=== PATIENT | male | born 1975 | race Caucasian/White ===

== ENCOUNTER 2021-06-07 12:33 | Emergency (ER) | payer OTHER, SELFPAY ==
[2021-06-07 12:37] VITALS: BP 107/76; PULSE 87; RESP 17; TEMP 36.5; O2SAT 96; BMI 32.1
--- NOTE | 2021-06-07 12:54 | ECG_ITS ---
Test Reason : ALLERGIC REACTION Blood Pressure : / mmHG Vent. Rate : 084 BPM Atrial Rate : 084 BPM P-R Int : 134 ms QRS Dur : 084 ms QT Int : 374 ms P-R-T Axes : 058 011 043 degrees QTc Int : 441 ms Normal sinus rhythm Normal ECG No previous ECGs available Referred By: Gin Betancourt Electronically Signed By:Mick Colvin
[2021-06-07] MEDS: Famotidine/PF 20 MG/2 ML VIAL IVPUSH (13:00)
[2021-06-07] MEDS: 0.9 % Sodium Chloride 1,000 ML 999 ML IV (13:00)
[2021-06-07] MEDS: diphenhydrAMINE HCL 50 MG/ML VIAL IVPUSH (13:00)
--- NOTE | 2021-06-07 13:09 | ED_ITS ---
HPI - Allergic Reaction General Chief complaint: Allergic Reaction Stated complaint: * Time Seen by Provider: 06/07/21 12:52 Source: EMS Mode of arrival: EMS Limitations: no limitations History of Present Illness HPI narrative: 46-year-old male previously healthy here with complaints of allergic reaction. Patient tells me approximately 1 hours prior to arrival he took a friend's dose of amoxicillin for a toothache. Shortly after he developed facial swelling, itching, vomiting, diarrhea, rash. He called EMS. He received 0.3 mg of epinephrine, 125 mg of Solu-Medrol, Benadryl 50 mg and 1 L of normal saline prior to arrival. He has no history of allergic reactions to penicillin before. On arrival he is feeling improved but is still complaining of some mild lower lip swelling and tongue swelling. Related Data Previous Rx's Medication Instructions Recorded clindamycin HCl 150 mg capsule 150 mg PO TID #21 cap 06/07/21 diphenhydramine HCl 25 mg capsule 25 mg PO Q6H PRN #20 cap 06/07/21 (Benadryl) epinephrine 0.3 mg/0.3 mL 0.3 mg IM Q10M PRN #2 ea 06/07/21 injection, auto-injector (EpiPen) famotidine 40 mg tablet 40 mg PO DAILY #5 tab 06/07/21 prednisone 20 mg tablet 40 mg PO DAILY #10 tab 06/07/21 Allergies Allergy/AdvReac Type Severity Reaction Status Date / Time No Known Allergies Allergy Unverified 07/18/20 16:51 Review of Systems Review of Systems: Yes all other systems are reviewed and are negative Constitutional: Constitutional: Reports no additional constitutional complaints, Denies body ache(s), Denies chills, Denies fever(s), Denies heada josefina(s) and Denies weakness Eyes: Eyes: Reports no additional eye complaints and Denies change in vision ENT: Reports system reviewed and no additional complaints, except as documented, Denies dizziness, Denies headache(s), Denies nasal congestion, Denies nasal discharge, Denies neck pain, Reports throat swelling and Reports tongue swelling Cardiovascular: Cardiovascular: Reports no additional cardiovascular complaints, Denies chest pain, Denies leg edema and Denies dyspnea Respiratory: Respiratory: Reports no additional respiratory complaints, Denies cough and Denies dyspnea Gastrointestinal: Gastrointestinal: Reports no additional gastrointestinal complaints, Denies abdominal pain, Reports diarrhea, Reports nausea and Reports vomiting Genitourinary: Genitourinary: Denies urinary incontinence Musculoskeletal: Musculoskeletal: Reports no additional musculoskeletal complaints, Denies back pain, Denies arthralgias, Denies joint swelling, Denies neck pain, Denies numbness and Denies tingling Integumentary/Breasts: Skin/Breast: Reports system reviewed and no additional complaints, except as docu, Reports pruritus and Reports rash Neurologic: Reports system reviewed and no additional complaints, except as documented, Denies Abnormal speech present, Denies dizziness, Denies headache(s), Denies numbness, Denies tingling and Denies weakness Allergic/Immunologic: Allergic/Immunologic: Reports throat swelling and Reports tongue swelling PMFSH Past Medical History Attestation statement: The following information was validated with the patient. Source: old records reviewed and nursing notes reviewed Social History Social History Alcohol intake: never Smoked in Last 30 Days: No Use of substances other than those prescribed or required for medical reasons: No Advance Directives: No Advance Directives Information Provided: Yes Physical Exam Vital Signs: Vital Signs: Last Vital Signs Temp 97.7 F 06/07/21 12:37 Pulse 70 06/07/21 16:32 Resp 16 06/07/21 16:32 BP 120/77 06/07/21 16:32 Pulse Ox 97 06/07/21 16:32 Body Mass Index 32.1 Const: General: cooperative, healthy appearing, comfortable and no acute distress Orientation/consciousness: patient oriented x3 Limitations: no limitations HENMT: Other: Mild to moderate swelling to the tongue. Uvula normal. Tolerating secretion. No upper airway stridor noted Head: Yes normal to inspection Ears: hearing grossly normal bilaterally General nose exam: Normal external nose present Face and sinus: Yes normal facial exam Mouth: Normal oral and palatal mucosa present and other (Mild swelling to lower lip. Upper lip normal) Throat: Yes posterior oropharynx normal Eyes: General: appearance normal, both eyes and all related structures Pupils: Equal, round and reactive pupils present Neck: Neck: Yes normal visual inspection Chest: Chest palpation & inspection: normal inspection of the chest Resp: Effort & Inspection: normal respiratory effort Auscultation: clear to auscultation bilaterally Cardio: Rate: regular rate Rhythm: regular rhythm Peripheral pulses: Peripheral pulses 2+ throughout GI: Inspection: Yes normal to inspection Palpation (GI): Soft to palpation and nontender Auscultation: normal bowel sounds Back/Spine/Pelvis: Thoracic/Lumbar Spine: thoracic and lumbar spine normal to inspection Skin: Other: Faint urticaria rash noted over the face and chest General skin exam: no rashes or lesions noted Neuro: General: patient oriented x3, no focal motor deficits and normal sensation to monofilament Cranial nerves: Yes Equal, round and reactive pupils present Cognition (Neuro): normal cognition Speech: No Abnormal speech present Gait exam (Neuro): Normal gait present Motor exam (neuro): 5/5 motor strength present throughout Extrem: General: Yes normal to inspection Course Course Course Narrative: 46-year-old male here after allergic reaction to taking a dose of amoxicillin from a friend for toothache. Had symptoms of facial swelling, itching, vomiting, diarrhea and rash. Received epinephrine, Solu-Medrol, Benadryl and fluids prior to arrival. On arrival he is feeling improved. He does report some mild lower lip swelling and tongue swelling. He is managing his airway. He is tolerating secretions. Uvula is midline with no swelling. No upper airway stridor. Stable vital signs. Dr. Caputo brought direct to bedside to eval patient. Plan for additional Benadryl, famotidine, normal saline. Will check EKG. Reassess and 15-20 minutes for need for repeat epinephrine. Monitor in ED for 4 hours [id number] no changes [id number] no changes [id number] no changes 1700-patient was re-evaluated. He feels like his tongue and face are less swollen itchy. He denies any difficulty breathing, vomiting or diarrhea. His rash is improved. He does have some mild swelling to the lower lip and tongue but is tolerating p.o. with no difficulty. No stridor. Stable vital signs. Discussed patient with Dr. Caputo. Plan for discharge home with EpiPen as needed. Will also discharge home with course of prednisone, Pepcid with Benadryl p.r.n. Of note, the patient is requesting antibiotics for dental pain. He plans to follow-up with his dentist this week. Will send him home with a course of clindamycin. On exam extensive dental caries MDM - Allergic Reaction Medical Records Attestation: I reviewed the patient's medical records. Lab Data Attestation: I reviewed the patient's lab results. ECG Data Attestation: I personally reviewed and interpreted this ECG as follows: ECG interpretation date: 06/07/21 ECG interpretation time: 12:43 Interpretation: Normal sinus rhythm with a rate 84, normal VA, normal QRS, normal QT Discharge Plan Discharge Clinical Impression: Allergic reaction, Pain, dental Patient Disposition: Home, Self-Care Instructions: Toothache (ED), General Allergic Reaction (ED) Additional Instructions: Return for difficulty breathing, increasing swelling over the face or mouth Start your prednisone and Pepcid tomorrow Use Benadryl as needed. Follow-up with dental clinic Prescriptions: New epinephrine [EpiPen] 0.3 mg/0.3 mL auto-injector 0.3 mg IM Q10M PRN (Reason: anaphylaxis) Qty: 2 RF: 0 prednisone 20 mg tablet 40 mg PO DAILY Qty: 10 RF: 0 diphenhydramine HCl [Benadryl] 25 mg capsule 25 mg PO Q6H PRN (Reason: allergic reaction) Qty: 20 RF: 0 famotidine 40 mg tablet 40 mg PO DAILY Qty: 5 RF: 0 clindamycin HCl 150 mg capsule 150 mg PO TID Qty: 21 RF: 0 Referrals: Physician,None [Primary Care Provider] - 2 days Interventions: ED Discharge Assessment Last Done: 06/07/21 17:15 Discharge Date/Time: 06/07/21 17:20
[2021-06-07 16:32] VITALS: BP 120/77; PULSE 70; RESP 16; O2SAT 97
== END 2021-06-07 17:20 | disposition home or self-care (01) ==
PROVIDERS: Emergency Provider Emergency Medicine Emergency Medical Services
DX: L50.9 Urticaria, unspecified (principal); T36.0X5A Adverse effect of penicillins, initial encounter; Y92.9 Unspecified place or not applicable
CPT/HCPCS: 93005; 96361; 96374; 96375; 99284; J1200

== ENCOUNTER 2021-08-09 11:21 | Emergency (ER) | payer OTHER, SELFPAY ==
[2021-08-09 12:17] VITALS: BP 139/83; PULSE 74; RESP 16; TEMP 36.6; O2SAT 98; BMI 31.5
--- NOTE | 2021-08-09 12:44 | ED.DENTAL ---
HPI - Dental/Oral General Chief complaint: Dental/Oral Stated complaint: dental pain Time Seen by Provider: 08/09/21 12:25 Source: patient Mode of arrival: ambulatory Limitations: no limitations History of Present Illness HPI Narrative: 46-year-old male here with complaints of right lower dental pain for several weeks worsening over the last few days. Patient tells me he is working on establishing a dentist. He does have health insurance. He denies any fevers, chills, difficulty swallowing or breathing. Related Data Previous Rx's Medication Instructions Recorded clindamycin HCl 150 mg capsule 150 mg PO TID #21 cap 06/07/21 diphenhydramine HCl 25 mg capsule 25 mg PO Q6H PRN #20 cap 06/07/21 (Benadryl) epinephrine 0.3 mg/0.3 mL 0.3 mg IM Q10M PRN #2 ea 06/07/21 injection, auto-injector (EpiPen) famotidine 40 mg tablet 40 mg PO DAILY #5 tab 06/07/21 prednisone 20 mg tablet 40 mg PO DAILY #10 tab 06/07/21 clindamycin HCl 150 mg capsule 150 mg PO TID 10 Days #30 cap 08/09/21 ibuprofen 800 mg tablet 800 mg PO Q8H PRN #30 tab 08/09/21 oxycodone 5 mg tablet 5 mg PO Q8H PRN #5 tab 08/09/21 Allergies Allergy/AdvReac Type Severity Reaction Status Date / Time No Known Allergies Allergy Unverified 07/18/20 16:51 Review of Systems Review of Systems: Yes all other systems are reviewed and are negative Constitutional: Constitutional: Reports no additional constitutional complaints, Denies body ache(s), Denies chills, Denies fever(s), Denies headache(s) and Denies weakness Eyes: Eyes: Reports no additional eye complaints and Denies change in vision ENT: Reports system reviewed and no additional complaints, except as documented, Reports dental pain, Denies dizziness, Denies headache(s), Denies nasal congestion, Denies nasal discharge and Denies neck pain Cardiovascular: Cardiovascular: Reports no additional cardiovascular complaints, Denies chest pain, Denies leg edema and Denies dyspnea Respiratory: Respiratory: Reports no additional respiratory complaints, Denies cough and Denies dyspnea Gastrointestinal: Gastrointestinal: Reports no additional gastrointestinal complaints, Denies abdominal pain, Denies diarrhea, Denies nausea and Denies vomiting Genitourinary: Genitourinary: Denies urinary incontinence Musculoskeletal: Musculoskeletal: Reports no additional musculoskeletal complaints, Denies back pain, Denies arthralgias, Denies joint swelling, Denies neck pain, Denies numbness and Denies tingling Integumentary/Breasts: Skin/Breast: Reports system reviewed and no additional complaints, except as docu and Denies rash Neurologic: Reports system reviewed and no additional complaints, except as documented, Denies Abnormal speech present, Denies dizziness, Denies headache(s), Denies numbness, Denies tingling and Denies weakness PMFSH Past Medical History Attestation statement: The following information was validated with the patient. Source: old records reviewed and nursing notes reviewed Social History Social History Alcohol intake: never Advance Directives: No Physical Exam Vital Signs: Vital Signs: Last Vital Signs Temp 97.9 F 08/09/21 12:17 Pulse 74 08/09/21 12:17 Resp 16 08/09/21 12:17 BP 139/83 08/09/21 12:17 Pulse Ox 98 08/09/21 12:17 Body Mass Index 31.5 Const: General: cooperative, healthy appearing, comfortable and no acute distress Orientation/consciousness: patient oriented x3 Limitations: no limitations HENMT: Other: Extensive dental caries No trismus Head: Yes normal to inspection Ears: hearing grossly normal bilaterally, external ears normal and TM's normal bilaterally General nose exam: Normal external nose present Face and sinus: Yes normal facial exam Mouth: Normal oral and palatal mucosa present Teeth image: 1. Extensive caries, broken toooth, local erythema. No fluctuance or induration Throat: Yes posterior oropharynx normal, Yes tonsils normal and Yes uvula midline Eyes: General: appearance normal, both eyes and all related structures Pupils: Equal, round and reactive pupils present Neck: Neck: Yes normal visual inspection, Yes full ROM and Yes no lymphadenopathy Chest: Chest palpation & inspection: normal inspection of the chest Resp: Effort & Inspection: normal respiratory effort Auscultation: clear to auscultation bilaterally Cardio: Rate: regular rate Rhythm: regular rhythm Peripheral pulses: Peripheral pulses 2+ throughout GI: Inspection: Yes normal to inspection Palpation (GI): Soft to palpation and nontender Auscultation: normal bowel sounds Back/Spine/Pelvis: Thoracic/Lumbar Spine: thoracic and lumbar spine normal to inspection Skin: General skin exam: no rashes or lesions noted Neuro: General: patient oriented x3, no focal motor deficits and normal sensation to monofilament Cranial nerves: Yes Equal, round and reactive pupils present Cognition (Neuro): normal cognition Speech: No Abnormal speech present Gait exam (Neuro): Normal gait present Motor exam (neuro): 5/5 motor strength present throughout Extrem: General: Yes normal to inspection Course Course Course Narrative: Extensive dental caries with local swelling, erythema to the right lower molar. No trismus. Patient is afebrile. Will treat with course of clindamycin as patient has prior history of anaphylaxis to amoxicillin. Recommended following up with dentist. Reviewed worrisome signs and symptoms of when to return to the emergency department. Comfortable discharge home. [facility] - Dental/Oral Medical Records Attestation: I reviewed the patient's medical records. Lab Data Attestation: I reviewed the patient's lab results. Discharge Plan Discharge Clinical Impression: Toothache Patient Disposition: Home, Self-Care Instructions: Toothache (ED) Additional Instructions: stop smoking see dental clinic list Prescriptions: New clindamycin HCl 150 mg capsule 150 mg PO TID 10 Days Qty: 30 RF: 0 ibuprofen 800 mg tablet 800 mg PO Q8H PRN (Reason: pain) Qty: 30 RF: 0 oxycodone 5 mg tablet 5 mg PO Q8H PRN (Reason: pain) Qty: 5 RF: 0 No Action epinephrine [EpiPen] 0.3 mg/0.3 mL auto-injector 0.3 mg IM Q10M PRN (Reason: anaphylaxis) Qty: 2 RF: 0 prednisone 20 mg tablet 40 mg PO DAILY Qty: 10 RF: 0 diphenhydramine HCl [Benadryl] 25 mg capsule 25 mg PO Q6H PRN (Reason: allergic reaction) Qty: 20 RF: 0 famotidine 40 mg tablet 40 mg PO DAILY Qty: 5 RF: 0 clindamycin HCl 150 mg capsule 150 mg PO TID Qty: 21 RF: 0 Referrals: Physician,None [Primary Care Provider] - 2 days Interventions: ED Discharge Assessment Last Done: 08/09/21 12:45
== END 2021-08-09 12:45 | disposition home or self-care (01) ==
PROVIDERS: Emergency Provider Emergency Medicine Emergency Medical Services
DX: K08.89 Other specified disorders of teeth and supporting structures (principal); Z79.899 Other long term (current) drug therapy
CPT/HCPCS: 99283

== ENCOUNTER 2021-08-12 17:34 | Emergency (ER) | payer OTHER, SELFPAY ==
[2021-08-12 17:43] VITALS: BP 127/75; PULSE 94; RESP 16; TEMP 36.6; O2SAT 97; BMI 30.7
[2021-08-12 19:59] VITALS: BP 115/75; PULSE 85; RESP 18; TEMP 36.9; O2SAT 99
--- NOTE | 2021-08-12 20:38 | ED.MALEGU ---
HPI - Male Genitourinary General Chief complaint: Urogenital-Male Stated complaint: Uro-gential male Time Seen by Provider: 08/12/21 18:21 History of Present Illness HPI Narrative: Patient is a 46-year-old male presents today with having pain to the right groin area. No penile discharge. No testicular pain. Patient claims he has a large boil to the right groin area that just started draining upon arrival in the emergency department. pain has been ongoing for the last 3-4 days. It is throbbing and is localized. Related Data Previous Rx's Medication Instructions Recorded clindamycin HCl 150 mg capsule 150 mg PO TID #21 cap 06/07/21 diphenhydramine HCl 25 mg capsule 25 mg PO Q6H PRN #20 cap 06/07/21 (Benadryl) epinephrine 0.3 mg/0.3 mL 0.3 mg IM Q10M PRN #2 ea 06/07/21 injection, auto-injector (EpiPen) famotidine 40 mg tablet 40 mg PO DAILY #5 tab 06/07/21 prednisone 20 mg tablet 40 mg PO DAILY #10 tab 06/07/21 clindamycin HCl 150 mg capsule 150 mg PO TID 10 Days #30 cap 08/09/21 ibuprofen 800 mg tablet 800 mg PO Q8H PRN #30 tab 08/09/21 oxycodone 5 mg tablet 5 mg PO Q8H PRN #5 tab 08/09/21 doxycycline hyclate 100 mg capsule 100 mg PO BID 5 Days #10 cap 08/12/21 Allergies Allergy/AdvReac Type Severity Reaction Status Date / Time amoxicillin Allergy Anaphylaxis Verified 08/12/21 17:46 Penicillins [PCN] Allergy Anaphylaxis Verified 08/12/21 17:46 Review of Systems Review of Systems: No fever no chills no systemic complaints Yes all other systems are reviewed and are negative [facility] Past Medical History Attestation statement: The following information was validated with the patient. Social History Social History Alcohol intake: never Advance Directives: No Advance Directives Information Provided: Yes Physical Exam Vital Signs: Vital Signs: Last Vital Signs Temp 98.4 F 08/12/21 19:59 Pulse 85 08/12/21 19:59 Resp 18 08/12/21 19:59 BP 115/75 08/12/21 19:59 Pulse Ox 99 08/12/21 19:59 Body Mass Index 30.7 Appearance: Alert. Oriented X3. No acute distress. Eyes: Pupils equal, round and reactive to light. ENT: Pharynx normal. Neck: Normal inspection. Neck supple. No lymph nodes noted. No crepitus CVS: Normal heart rate and rhythm. Pulses normal. Normal S1 and S2 Respiratory: No respiratory distress. Breath sounds normal. No Wheezing. No rales Abdomen: Soft and nontender. No rigidity. No distention. good BS x4 Skin: Positive draining abscess to the right groin area that is approximately 3 cm x 4 cm in size. It is slightly red. There is currently material that is being discharge from the opening. Extremities: No lower extremity edema. Neurovascular intact to all extremities. No Lacerations. No Rash Neuro: Oriented X 3. No motor deficit. No sensory deficit. Moving all extermities. No slurred speech MDM - Male Genitourinary MDM Narrative Medical decision making narrative: Discussed with patient the need for potential I&D. Given that is already open patient elected to take antibiotic warm soak close follow-up on an outpatient basis. Patient has financial issues. Two days of medication was given to him. Will also write a prescription for additional 3 days. Patient is in stable condition. Discharge Plan Discharge Clinical Impression: Abscess Patient Disposition: Home, Self-Care Prescriptions: New doxycycline hyclate 100 mg capsule 100 mg PO BID 5 Days Qty: 10 RF: 0 No Action epinephrine [EpiPen] 0.3 mg/0.3 mL auto-injector 0.3 mg IM Q10M PRN (Reason: anaphylaxis) Qty: 2 RF: 0 prednisone 20 mg tablet 40 mg PO DAILY Qty: 10 RF: 0 diphenhydramine HCl [Benadryl] 25 mg capsule 25 mg PO Q6H PRN (Reason: allergic reaction) Qty: 20 RF: 0 famotidine 40 mg tablet 40 mg PO DAILY Qty: 5 RF: 0 clindamycin HCl 150 mg capsule 150 mg PO TID Qty: 21 RF: 0 clindamycin HCl 150 mg capsule 150 mg PO TID 10 Days Qty: 30 RF: 0 ibuprofen 800 mg tablet 800 mg PO Q8H PRN (Reason: pain) Qty: 30 RF: 0 oxycodone 5 mg tablet 5 mg PO Q8H PRN (Reason: pain) Qty: 5 RF: 0 Referrals: Physician,Unknown J [Primary Care Provider] - 2 days (Warm soak to the area. Close follow-up with your primary physician or come back to the emergency department in 2-3 days for wound check. Please take your antibiotic twice a day. Please avoid sun or use sun protection. This medication can cause a sunburn. Please eat something before taking the antibiotic. Taking this antibiotic on an empty stomach can cause abdominal pain )
== END 2021-08-12 21:09 | disposition home or self-care (01) ==
PROVIDERS: Emergency Provider Emergency Medicine Emergency Medical Services
DX: L02.214 Cutaneous abscess of groin (principal); R10.31 Right lower quadrant pain; Z79.899 Other long term (current) drug therapy
CPT/HCPCS: 99283; 99284